=== PATIENT | female | born 1995 | race Native Hawaiian/Other Pacific Islander ===

== ENCOUNTER 2019-05-09 10:10 | Emergency (ER) | payer BC ==
[~2019-05-09] VITALS: Ht 162.6 cm; Wt 63.5 kg
[2019-05-09 10:15] VITALS: TEMP 99.1
[2019-05-09 11:18] LABS: POTASSIUM 3.5 mmol/L (3.6-5.2)
[2019-05-09 11:33] LABS: PLATELET COUNT 234 K/uL (152-353)
[2019-05-09 13:05] VITALS: BP 126/80
== END 2019-05-09 13:05 | disposition home or self-care (01) ==
LOC: ED 10:10
PROVIDERS: Family Medicine
DX: R10.84 Generalized abdominal pain (principal); R11.0 Nausea; Z3A.08 8 weeks gestation of pregnancy; O26.891 Other specified pregnancy related conditions, first trimester
CPT/HCPCS: 80053; 81000; 84702; 85027; 99284